=== PATIENT | female | born 1990 | race African-American/Black ===

== ENCOUNTER 2019-01-30 07:06 | Emergency (ER) | payer SELFPAY ==
[~2019-01-30] VITALS: Ht 170.2 cm; Wt 85.0 kg
[~2019-01-30 07:06] MED LIST: AMOXICILLIN500 MG PO; BUTALBITAL/ACETAMIN1 OR; FERROUS SULF325 M1 PO; FLAGYL500 MG PO; FLUZONE SPLT1 M1 IM; NIFEDIPINE20 MG PO; NO; NO HOME MEDS; OBTREX DHA PO; ONDANSETRON ODT8 MG PO; PRENATAL1 TAB PO; RHO (D) IMMUN300 MCG IM; VALTREX1 GM PO
[2019-01-30] MEDS ORDERED: CLEOCIN300 MG PO (07:17)
[2019-01-30] MEDS ORDERED: PENICILLN VK500 M1 PO (07:38)
[2019-01-30] MEDS ORDERED: ONDANSETRON4 MG PO (07:38)
[2019-01-30 08:51] VITALS: BP 126/81
== END 2019-01-30 08:45 | disposition home or self-care (01) | DRG 159 ==
LOC: ED 07:06
DX: K08.89 Other specified disorders of teeth and supporting structures (principal)

== ENCOUNTER 2022-07-04 21:18 | Emergency (ER) | payer BC ==
[~2022-07-04] VITALS: Ht 170.2 cm; Wt 72.2 kg
[~2022-07-04 21:18] MED LIST changes: +CLEOCIN300 MG PO; +ONDANSETRON4 MG PO; +PENICILLN VK500 M1 PO
[2022-07-04 22:51] VITALS: BP 117/90
[2022-07-04 22:51] LABS: BASO% 0.5 % (0-3); EOS% 0.3 % (0-8); HEMATOCRIT 33.7 % (37.0-47.0); HEMOGLOBIN 10.7 g/dl (12.0-16.0); IMMATURE GRANULOCYTES 0.3 % (0.0-5.0); LYMPH% 6.3 % (15-41); MEAN CORPUSCULAR HGB 28.7 pG CALC (26.0-32.0); MEAN CORPUSCULAR HGB CONC 31.8 g/dL CAL (32.0-36.0); MONO% 7.1 % (2-13); NEUT# 5.46 thou/uL (2.00-7.15); NEUT% 85.5 % (42-76); RED BLOOD COUNT 3.73 mill/uL (4.20-5.60); RED CELL DISTRI WIDTH 13.9 % (11.5-15.5)
[2022-07-04 22:54] LABS: MEAN CELL VOLUME 90.3 fL CALC (80.0-100.0)
[2022-07-04 23:00] VITALS: BP 115/78
[2022-07-04 23:06] LABS: ANION GAP 12 (6-22 (CALC)); BUN 7 mg/dL (7-17); BUN/CREATININE RATIO 11 (12-20 (CALC)); CARBON DIOXIDE 23 mmol/l (22-30); CHLORIDE 106 mmol/l (95-108); CREATININE 0.6 mg/dL (0.5-1.0); GFR FOR AFR.AMER. > 60 ML/MIN (>=60 (CALC)); GFR OTHER RACES > 60 ML/MIN (>=60 (CALC)); POTASSIUM 3.7 mmol/l (3.5-5.1); SGOT/AST 20 u/l (14-36); SODIUM 137 mmol/l (137-146)
[2022-07-04 23:11] LABS: ALBUMIN 4.5 g/dL (3.2-5.0); ALKALINE PHOSPHATASE 55 u/l (38-126); BILIRUBIN, TOTAL 0.2 mg/dL (0.02-1.3); TOTAL PROTEIN 7.3 g/dL (6.3-8.2)
[2022-07-04 23:15] VITALS: BP 130/84
[2022-07-04 23:31] LABS: URINE BILIRUBIN - DIPSTICK NEGATIVE (NEGATIVE); URINE BLOOD DIPSTICK SMALL (NEGATIVE); URINE COLOR YELLOW; URINE GLUCOSE - DIPSTICK NEGATIVE (NEGATIVE); URINE KETONE >=80 mg/dL (NEGATIVE); URINE LEUK ESTERASE NEGATIVE (NEGATIVE); URINE PROTEIN - DIPSTICK 100 mg/dL (NEG-TRACE); URINE SPECIFIC GRAVITY >=1.030; URINE UROBILINOGEN - DIPSTICK 0.2 E.U./dL (0.2)
[2022-07-04 23:32] LABS: URINE NITRITE - DIPSTICK NEGATIVE (Negative)
[2022-07-04 23:37] LABS: TSH, 3RD GENERATION 0.25 uIU/mL (0.47 - 4.68)
[2022-07-04 23:37] LABS: URINE BACTERIA FEW hpf; URINE SQUAMOUS EPITHELIAL CELL MANY EPI/hpf (0-FEW)
[2022-07-05] MEDS ORDERED: TORADOL PO (00:16)
[2022-07-05] MEDS ORDERED: PHENERGAN25 MG RE (00:16)
[2022-07-05 00:45] VITALS: BP 130/84
== END 2022-07-05 01:00 | disposition home or self-care (01) | DRG 392 ==
LOC: ED 21:18
PROVIDERS: Family Medicine
DX: A08.4 Viral intestinal infection, unspecified (principal); R51.9 Headache, unspecified; Z20.822 Contact with and (suspected) exposure to COVID-19

== ENCOUNTER 2023-01-09 09:51 | Emergency (ER) | payer BC ==
[~2023-01-09] VITALS: Ht 170.2 cm; Wt 63.5 kg
[~2023-01-09 09:51] MED LIST changes: +PHENERGAN25 MG RE; +TORADOL PO
[2023-01-09 09:57] VITALS: BP 121/85
[2023-01-09 10:01] VITALS: BP 129/94
[2023-01-09] MEDS ORDERED: GABAPENTIN100 MG PO (10:22)
[2023-01-09] MEDS ORDERED: PRED FORTE1 % (10:22)
[2023-01-09] MEDS ORDERED: DORZOLAMIDE HCL2 % OP (10:23)
[2023-01-09 11:01] LABS: BASO% 0.8 % (0-3); EOS% 1.8 % (0-8); HEMATOCRIT 39.2 % (37.0-47.0); HEMOGLOBIN 12.6 g/dl (12.0-16.0); LYMPH% 42.4 % (15-41); MEAN CELL VOLUME 89.1 fL CALC (80.0-100.0); MEAN CORPUSCULAR HGB 28.6 pG CALC (26.0-32.0); MEAN CORPUSCULAR HGB CONC 32.1 g/dL CAL (32.0-36.0); MONO% 8.6 % (2-13); NEUT# 2.33 thou/uL (2.00-7.15); NEUT% 46.4 % (42-76); RED BLOOD COUNT 4.4 mill/uL (4.20-5.60); RED CELL DISTRI WIDTH 14.9 % (11.5-15.5)
[2023-01-09 11:04] LABS: ALBUMIN 4.7 g/dL (3.2-5.0); ALKALINE PHOSPHATASE 49 u/l (38-126); ANION GAP 12 (6-22 (CALC)); BUN 14 mg/dL (7-17); BUN/CREATININE RATIO 18 (12-20 (CALC)); CARBON DIOXIDE 25 mmol/l (22-30); CHLORIDE 108 mmol/l (95-108); CREATININE 0.8 mg/dL (0.5-1.0); GFR FOR AFR.AMER. > 60 ML/MIN (>=60 (CALC)); GFR OTHER RACES > 60 ML/MIN (>=60 (CALC)); SGOT/AST 28 u/l (14-36); SODIUM 141 mmol/l (137-146); TOTAL PROTEIN 8.1 g/dL (6.3-8.2)
[2023-01-09 11:07] LABS: BILIRUBIN, TOTAL 0.4 mg/dL (0.02-1.3)
[2023-01-09] MEDS ORDERED: PERCOCET 5/325M1 TAB PO (11:59)
[2023-01-09 12:01] VITALS: BP 121/85
[2023-01-10] MEDS ORDERED: PERCOCET 5/325M1 TAB PO (12:32)
== END 2023-01-09 12:10 | disposition home or self-care (01) | DRG 103 ==
LOC: ED 09:51
PROVIDERS: Family Medicine
DX: R51.9 Headache, unspecified (principal)

== ENCOUNTER 2024-06-08 11:41 | Emergency (ER) | payer OTHER ==
[~2024-06-08] VITALS: Ht 170.2 cm; Wt 68.0 kg
[~2024-06-08 11:41] MED LIST changes: +DORZOLAMIDE HCL2 % OP; +GABAPENTIN100 MG PO; +PERCOCET 5/325M1 TAB PO; +PRED FORTE1 %
[2024-06-08] MEDS ORDERED: GABAPENTIN600 MG PO (13:47)
[2024-06-08] MEDS ORDERED: TEGRETOL PO (13:47)
[2024-06-08 13:48] VITALS: BP 126/82
== END 2024-06-08 13:53 | disposition home or self-care (01) ==
LOC: ED 11:41
DX: G50.0 Trigeminal neuralgia (principal)

== ENCOUNTER 2024-07-03 16:22 | Emergency (ER) | payer OTHER ==
[~2024-07-03] VITALS: Ht 170.2 cm; Wt 68.0 kg
[~2024-07-03 16:22] MED LIST changes: +GABAPENTIN600 MG PO; +TEGRETOL PO
[2024-07-03] MEDS ORDERED: TRILEPTAL300 M1 PO (17:22)
[2024-07-03] MEDS ORDERED: TEGRETOL PO (17:22)
== END 2024-07-03 17:39 | disposition home or self-care (01) | DRG 951 ==
LOC: ED 16:22
DX: Z76.0 Encounter for issue of repeat prescription (principal); G50.0 Trigeminal neuralgia